=== PATIENT | female | born 1965 | race Caucasian/White ===

== ENCOUNTER → 2017-08-14 | Outpatient (CLI) | payer BC ==
[~2017-08-14] MED LIST: DIATRIZOATE MEGL/DIATRIZOA SOD 30 ML BTL PO ONE; IOPAMIDOL 370 MG/ML 200 ML INFUS..BTL INJ ONE; SODIUM CHLORIDE 0.9% 50ML 50 ML ONE
--- NOTE | 2017-08-14 12:27 | Diagnostic Imaging Report ---
EXAM: CT Abdomen and Pelvis WITH contrast INDICATION: \[id number] \S\1053 \S\ABDOMIONAL PAIN / HIST OF DIVER COMPARISON: CT dated 06/05/2017 TECHNIQUE: Abdomen and pelvis were scanned utilizing a multidetector helical scanner from the lung base to the pubic symphysis after administration of IV contrast. Coronal and sagittal reformations were obtained. Routine protocol was performed. Scan was performed when during portal venous phase. IV CONTRAST: 100 mL of Isovue-370 ORAL CONTRAST: Gastroview COMPLICATIONS: None RADIATION DOSE: Total DLP: 593.22 mGy*cm Estimated effective dose: (DLP x 0.015 x size factor) mSv CTDIvol has been reviewed. It is below the limits set by the Radiation Protocol Committee (RPC). FINDINGS: LINES and TUBES: None. LOWER THORAX: Unremarkable HEPATOBILIARY: Subcentimeter right hepatic lobe hypodensity is too small to characterize (series 2, image 18), however unchanged. Approximately 0.9 cm new ill-defined left hepatic lobe hypodensity (series 2, image11), also too small to characterize. No biliary ductal dilation. GALLBLADDER: No radio-opaque stones or sludge. No wall thickening. SPLEEN: Splenomegaly. PANCREAS: No focal masses or ductal dilatation. ADRENALS: No adrenal nodules KIDNEYS/URETERS: Kidneys enhance symmetrically. Minimal bilateral hydronephrosis. No renal mass. Stable 1.4 cm right upper pole cyst. No stones. GI TRACT: No abnormal distention, wall thickening, or evidence of bowel obstruction. Appendix is normal. Sigmoid diverticulosis without evidence of diverticulitis. PELVIC ORGANS/BLADDER: Yan bladder. LYMPH NODES: No lymphadenopathy. VESSELS: Unremarkable. PERITONEUM / RETROPERITONEUM: No free air or fluid. BONES: Lumbar spine levoscoliosis. No acute osseous abnormality. SOFT TISSUES: Unremarkable. IMPRESSION: 1. No acute inflammatory process in the abdomen/pelvis. 2. Minimal bilateral hydronephrosis, likely due to backflow pressure from distended bladder. 3. Tiny nonspecific hepatic hypodensities which are too small to characterize. If clinically indicated, right upper quadrant ultrasound can be obtained to further evaluate. 4. Sigmoid diverticulosis without evidence of diverticulitis. Signed by: Dr. Celestine Fairbanks MD on 08/14/2017 12:23 PM
== END ==
LOC: CT 09:30
PROVIDERS: ATTEND Internal Medicine Gastroenterology
DX: R10.9 Unspecified abdominal pain (principal); Z87.19 Personal history of other diseases of the digestive system
CPT/HCPCS: 74177; Q9967

== ENCOUNTER → 2018-03-29 | Outpatient (CLI) | payer BC ==
[2018-03-29 13:31] LABS: BLOOD UREA NITROGEN 13 mg/dL (7-26); BUN/CREATININE RATIO 19 (6-25); EST GLOMERULAR FILTRATION RATE > 60 ML/MIN (60-)
--- NOTE | 2018-03-29 16:25 | Diagnostic Imaging Report ---
EXAM: CT Abdomen and Pelvis WITH contrast INDICATION: Abdominal Pain COMPARISON: CT dated 06/05/2017 TECHNIQUE: Abdomen and pelvis were scanned utilizing a multidetector helical scanner from the lung base to the pubic symphysis after administration of IV contrast. Coronal and sagittal reformations were obtained. Routine protocol was performed. Scan was performed when during portal venous phase. IV CONTRAST: 100 mL of Isovue-370 ORAL CONTRAST: Gastroview COMPLICATIONS: None RADIATION DOSE: Total DLP: 281.62 mGy*cm Estimated effective dose: (DLP x 0.015 x size factor) mSv CTDIvol has been reviewed. It is below the limits set by the Radiation Protocol Committee (RPC). FINDINGS: LINES and TUBES: None. LOWER THORAX: Unremarkable HEPATOBILIARY: Subcentimeter right hepatic lobe hypodensity is too small to characterize and unchanged, likely representing a cyst. A previously noted 9 mm left hepatic lobe hypodensity is no longer visualized. No biliary ductal dilation. GALLBLADDER: No radio-opaque stones or sludge. No wall thickening. SPLEEN: Splenomegaly. PANCREAS: No focal masses or ductal dilatation. ADRENALS: No adrenal nodules KIDNEYS/URETERS: Kidneys enhance symmetrically. No evidence of hydronephrosis, solid mass, or stone. Stable 1.4 cm right upper pole cyst. GI TRACT: There is sigmoid diverticulosis with wall thickening and mild pericolonic stranding. No abnormal distention. Appendix is normal. PELVIC ORGANS/BLADDER: Unremarkable. LYMPH NODES: No lymphadenopathy. VESSELS: Unremarkable. PERITONEUM / RETROPERITONEUM: No free air or fluid. BONES AND SOFT TISSUES: Lumbar spine levoscoliosis. No acute osseous abnormality. IMPRESSION: Acute sigmoid diverticulitis without evidence of perforation or drainable fluid collections. Signed by: Dr. Susan Holcomb MD on 03/29/2018 4:22 PM
== END ==
LOC: CT 12:36
PROVIDERS: ATTEND Internal Medicine Gastroenterology
DX: R10.9 Unspecified abdominal pain (principal)
CPT/HCPCS: 36415; 74177; 82565; 84520; Q9967

== ENCOUNTER → 2018-05-21 | Day surgery (SDC) | payer BC ==
[~2018-05-21] MED LIST changes: -DIATRIZOATE MEGL/DIATRIZOA SOD 30 ML BTL PO ONE; +FENTANYL CITRATE/PF 100MCG/2 ML INJ ONE; +HYOSCYAMINE SULFATE 0.5 MG/ML INJ ONE; -IOPAMIDOL 370 MG/ML 200 ML INFUS..BTL INJ ONE; +MIDAZOLAM HCL 2 MG/2 ML VIAL ONE; +PROPOFOL IV EMULSION 10 MG/ML 50 ML VIAL ONE; -SODIUM CHLORIDE 0.9% 50ML 50 ML ONE
--- OUTSIDE RECORDS SUMMARY | 2018-05-21 08:11 | XMS REPORT ---
[facility] Address Unknown Phone Unavailable Care Team Providers Care Provider Enrollment Specialist Name Role Phone DIANE CASTELLANO Unavailable Unavailable Problems This patient has no known problems. Allergies, Adverse Reactions, Alerts This patient has no known allergies or adverse reactions. Medications This patient has no known medications. Results Test Description Test Time Test Comments Text Results Atomic Results Result Comments CT ABDOMEN/PELVIS W 2018-03-29 16:14:00 [place] [address] Patient Name: GRACIELA CALDERON MR #: [id number] : 1965 Age/Sex: 53/F Req #: [id number] Adm Physician: Ordered by: DIANE CASTELLANO MD Report #: [id number] Location: CT Room/Bed: Procedure: [id number] CT/CT ABDOMEN/PELVIS W Exam Date: 03/29/18 Exam Time: 1412 REPORT STATUS: Signed EXAM: CT Abdomen and Pelvis WITH contrast INDICATION: Abdominal Pain COMPARISON: CT dated 06/05/2017 TECHNIQUE: Abdomen and pelvis were scanned utilizing a multidetector helical scanner from the lung base to the pubic symphysis after administration of IV contrast. Coronal and sagittal reformations were obtained. Routine protocol was performed. Scan was performed when during portal venous phase. IV CONTRAST: 100 mL of Isovue-370 ORAL CONTRAST: Gastroview COMPLICATIONS: None RADIATION DOSE: Total DLP: 281.62 mGy*cm Estimated effective dose: (DLP x 0.015 x size factor) mSv CTDIvol has been reviewed. It is below the limits set by the Radiation Protocol Committee (RPC). FINDINGS: LINES and TUBES: None. LOWER THORAX: Unremarkable HEPATOBILIARY: Subcentimeter right hepatic lobe hypodensity is too small to characterize and unchanged, likely representing a cyst. A previously noted 9 mm left hepatic lobe hypodensity is no longer visualized. No biliary ductal dilation. GALLBLADDER: No radio-opaque stones or sludge. No wall thickening. SPLEEN: Splenomegaly. PANCREAS: No focal masses or ductal dilatation. ADRENALS: No adrenal nodules KIDNEYS/URETERS: Kidneys enhance symmetrically. No evidence of hydronephrosis, solid mass, or stone. Stable 1.4 cm right upper pole cyst. GI TRACT: There is sigmoid diverticulosis with wall thickening and mild pericolonic stranding. No abnormal distention. Appendix is normal. PELVIC ORGANS/BLADDER: Unremarkable. LYMPH NODES: No lymphadenopathy. VESSELS: Unremarkable. PERITONEUM / RETROPERITONEUM: No free air or fluid. BONES AND SOFT TISSUES: Lumbar spine levoscoliosis. No acute osseous abnormality. IMPRESSION: Acute sigmoid diverticulitis without evidence of perforation or drainable fluid collections. Signed by: Dr. Den Moe MD on 03/29/2018 4:22 PM Dictated By: DEN MOE MD 1622 Transcribed By: JAELYN on 03/29/18 1622 COPY TO: DIANE CASTELLANO MD CT ABDOMEN/PELVIS [place] [address] Patient Name: GRACIELA CALDERON MR #: [id number] : 1965 Age/Sex: 52/F Req #: [id number] Adm Physician: Ordered by: DIANE CASTELLANO MD Report #: [id number] Location: CT Room/Bed: Procedure: [id number] CT/CT ABDOMEN/PELVIS W Exam Date: 08/14/17 Exam Time: 1053 REPORT STATUS: Signed EXAM: CT Abdomen and Pelvis WITH contrast INDICATION: COMPARISON: CT dated 06/05/2017 TECHNIQUE: Abdomen and pelvis were scanned utilizing a multidetector helical scanner from the lung base to the pubic symphysis after administration of IV contrast. Coronal and sagittal reformations were obtained. Routine protocol was performed. Scan was performed when during portal venous phase. IV CONTRAST: 100 mL of Isovue-370 ORAL CONTRAST: Gastroview COMPLICATIONS: None RADIATION DOSE: Total DLP: 593.22 mGy*cm Estimated effective dose: (DLP x 0.015 x size factor) mSv CTDIvol has been reviewed. It is below the limits set by the Radiation Protocol Committee (RPC). FINDINGS: LINES and TUBES: None. LOWER THORAX: Unremarkable HEPATOBILIARY: S ubcentimeter right hepatic lobe hypodensity is too small to characterize (series 2, image 18), however unchanged. Approximately 0.9 cm new ill-defined left hepatic lobe hypodensity (series 2, image11), also too small to characterize. No biliary ductal dilation. GALLBLADDER: No radio-opaque stones or sludge. No wall thickening. SPLEEN: Splenomegaly. PANCREAS: No focal masses or ductal dilatation. ADRENALS: No adrenal nodules KIDNEYS/URETERS: Kidneys enhance symmetrically. Minimal bilateral hydronephrosis. No renal mass. Stable 1.4 cm right upper pole cyst. No stones. GI TRACT: No abnormal distention, wall thickening, or evidence of bowel obstruction. Appendix is normal. Sigmoid diverticulosis without evidence of diverticulitis. PELVIC ORGANS/BLADDER: Yan bladder. LYMPH NODES: No lymphadenopathy. VESSELS: Unremarkable. PERITONEUM / RETROPERITONEUM: No free air or fluid. BONES: Lumbar spine levoscoliosis. No acute osseous abnormality. SOFT TISSUES: Unremarkable. IMPRESSION: 1. No acute inflammatory process in the abdomen/pelvis. 2. Minimal bilateral hydronephrosis, likely due to backflow pressure from distended bladder. 3. Tiny nonspecific hepatic hypodensities which are too small to characterize. If clinically indicated, right upper quadrant ultrasound can be obtained to further evaluate. 4. Sigmoid diverticulosis without evidence of diverticulitis. Signed by: Dr. Celestine Khan MD on 08/14/2017 12:23 PM Dictated By: CELESTINE KHAN MD 1223 Transcribed By: JAELYN on 08/14/17 1223 COPY TO: DIANE CASTELLANO MD CT ABDOMEN/PELVIS W [place] [address] Patient Name: GRACIELA CALDERON MR #: [id number] : 1965 Age/Sex: 52/F Req #: [id number] Adm Physician: Ordered by: DIANE CASTELLANO MD Report #: [id number] Location: CT Room/Bed: Procedure: [id number] CT/CT ABDOMEN/PELVIS W Exam Date: 06/05/17 Exam Time: 1850 REPORT STATUS: Signed PROCEDURE: CT ABDOMEN AND PELVIS WITH CONTRAST TECHNIQUE: The abdomen and pelvis were scanned utilizing a multidetector helical scanner from the diaphragm to the lesser trochanter after the IV administration of 100 cc of Isovue 370 and the oral administration of Gastroview 30 cc. Coronal and sagittal multiplanar reformations were obtained. COMPARISON: None. INDICATIONS: LOWER ABDOMINAL PAIN, HX OF DIVERTICULITIS FINDINGS: LOWER THORAX: Normal. HEPATOBILIARY: No focal hepatic lesions. No biliary ductal dilatation. SPLEEN: No splenomegaly. PANCREAS: No focal masses or ductal dilatation. ADRENALS: No adrenal nodules. KIDNEYS/URETERS: No hydronephrosis, stones, or solid mass lesions. Simple cyst is present in the superior pole the right kidney. PELVIC ORGANS/BLADDER: Unremarkable. PERITONEUM / RETROPERITONEUM: No free air or fluid. LYMPH NODES: No lymphadenopathy. VESSELS: Unremarkable. GI TRACT: Multiple diverticuli are present in the descending and sigmoid colon. Long segment of bowel wall thickening with adjacent soft tissue inflammatory changes are present, series 2 image 64. 1.1 cm contained perforation is present, series 2 image 62. No drainable fluid collection. Normal appendix. BONES AND SOFT TISSUES: Minimal degenerative changes of the lumbar spine. IMPRESSION: Acute diverticulitis with small contained perforation. Dictated by: Campbell Cruz M.D. on 06/06/2017 at 12:51 Electronically approved by: Campbell Cruz M.D. on 06/06/2017 at 12:51 Dictated By: CAMPBELL CRUZ MD 1251 Transcribed By: ANDREY on 06/06/17 1251 COPY TO: DIANE CASTELLANO MD
--- OUTSIDE RECORDS SUMMARY | 2018-05-21 08:11 | XMS REPORT | Clinical Summary ---
Author Author [facility] Address Unknown Phone Unavailable Care Team Providers Care Flat Screen Worker Name Role Phone Asked, No Pcp PCP Unavailable Allergies Not on File Current Medications Not on file Active Problems Not on file Encounters Date Type Specialty Care Team Description 05/01/2018 Clinical Corporate Wellness Support after 05/20/2017 Immunizations Name Dates Previously Given Next Due FLUCELVAX QUAD PF (0.5mL 05/01/2018 syringe) Social History Tobacco Use Types Packs/Day Years Used Date Never Assessed Sex Assigned at Date Recorded Not on file Last Filed Vital Signs Not on file Plan of Treatment Health Maintenance Due Date Last Done Comments CERVICAL CANCER SCREENING 01/31/1984 BREAST CANCER SCREENING 2013 COLON CANCER SCREENING 2013 SHINGRIX VACCINE (#1) 2013 INFLUENZA VACCINE Completed 05/01/2018 Results Not on fileafter 05/20/2017 Insurance Payer Benefit Subscriber ID Type Phone Address Plan / Group BCBS BCBS xxxxxxxxxxxx PPO CHOICE PPO/DANIEL ALEX PPO Work: [id number] [place] [id number] Home:
[2018-05-21 12:25] VITALS: BP 114/76
--- NOTE | 2018-05-21 12:52 | Operative Report ---
DATE OF PROCEDURE: May 21, 2018 REFERRING PHYSICIAN: Dr. Mahesh Elder. PROCEDURE PERFORMED: Colonoscopy and polypectomy with biopsies. INDICATIONS FOR COLONOSCOPY: Colorectal cancer screening. Sister with colon cancer. MEDICATION: Patient was done under MAC. Please see anesthesiologist's note. PROCEDURE: With the patient in the left lateral decubitus position, the flexible fiberoptic Olympus colonoscope was inserted into the rectum with ease and advanced all the way to the cecum. Mucosa overlying the cecum appeared to be within normal limits. The ileocecal valve was intubated, and the scope was advanced into the terminal ileum. There were some patchy mild inflammatory changes noted in the terminal ileum, and biopsies were obtained. The scope was then withdrawn back into the colon. It was then withdrawn slowly. Mucosa overlying the ascending and the transverse appeared to be within normal limits. There was some diverticular disease noted in the distal descending and the sigmoid colon. Some patchy mild inflammatory areas were noted in the sigmoid and the rectum, and random biopsies were obtained. One polyp was hot biopsied from the rectum. The scope was then retroflexed into the distal rectum and small internal hemorrhoids were noted, none of which was actively bleeding. Also, there were some hypertrophic anal papillae. The scope was then straightened out. It was subsequently withdrawn. Patient tolerated the procedure well. IMPRESSION: 1. Ileitis, mild, biopsied. 2. Diverticulosis. 3. Proctosigmoiditis, mild. Biopsies obtained. 4. Rectal polyp hot biopsied. 5. Internal hemorrhoids, none actively bleeding. 6. Hypertrophic anal papillae. PLAN: Follow up histology. Initiate VSL#3 one p.o. daily. Patient might benefit from a followup colonoscopy in 3 years. Job#: [id number] EV cc:MAHESH ELDER DO
== END | disposition home or self-care (01) ==
LOC: OR 08:09
PROVIDERS: ATTEND Internal Medicine Gastroenterology
DX: Z12.11 Encounter for screening for malignant neoplasm of colon (principal); Z80.0 Family history of malignant neoplasm of digestive organs; K52.9 Noninfective gastroenteritis and colitis, unspecified; D12.8 Benign neoplasm of rectum; K63.89 Other specified diseases of intestine; K62.89 Other specified diseases of anus and rectum; K64.8 Other hemorrhoids; K57.30 Diverticulosis of large intestine without perforation or abscess without bleeding
CPT/HCPCS: 45384; 93005; J1980; J2250

== ENCOUNTER → 2018-07-09 | Outpatient (CLI) | payer BC ==
--- NOTE | 2018-07-09 11:17 | Diagnostic Imaging Report ---
This report includes an Addendum and supersedes previous reports for this exam. PROCEDURE:X-RAY BARIUM ENEMA WITH AIR CONTRAST COMPARISON:None. INDICATIONS:DIVERTICULOSIS TECHNIQUE:An air contrast barium enema examination was performed in the usual manner. Loss Claim Clerk abdominal radiograph moderate-severe thoracolumbar scoliosis. FINDINGS: COLON:There are moderate amount of diverticula present in the distal descending colon and proximal sigmoid colon. Narrowing in this region is present. There are several isolated diverticula present in the mid descending colon. There are no signs of diverticulitis. No polyps are seen. No obstructing or constricting lesions. The appendix is visualized. Fluoroscopy time: 1.9 minutes Total dose: 74.59 mGy CONCLUSION: Colonic diverticulosis. Phil Nolen D.O. Dictated by: Phil Nolen D.O. on 07/09/2018 at 11:27 Electronically approved by: Phil Nolen D.O. on 07/09/2018 at 11:27 ADDENDUM: A total of 15 fluoro spot images were obtained and saved to the medical record. Air Kerma not specified by the technologist. Phil Nolen D.O. Dictated by: Phil Nolen D.O. on 07/18/2018 at 8:16 Electronically approved by: Phil Nolen D.O. on 07/18/2018 at 8:16
== END ==
LOC: DX 07:37
PROVIDERS: ATTEND Surgery
DX: K57.92 Diverticulitis of intestine, part unspecified, without perforation or abscess without bleeding (principal)
CPT/HCPCS: 74280

== ENCOUNTER 2018-08-15 05:31 | Inpatient (IN) | payer BC ==
[2018-08-10 10:50] LABS: BASOPHILS % 0.7 % (0.0-1.0); EOSINOPHILS # (AUTO) 0.1 (0.0-0.4); EOSINOPHILS % 2.9 % (0.0-6.0); HEMATOCRIT 40.9 % (34.2-44.1); HEMOGLOBIN 13.3 g/dL (12.0-16.0); LYMPHOCYTES # (AUTO) 1.8 (1.0-3.2); LYMPHOCYTES % 39.4 % (18.0-39.1); MEAN CORPUSCULAR HEMOGLOBIN 28.7 pg (28-32); MEAN CORPUSCULAR HGB CONC 32.5 g/dL (31-35); MEAN CORPUSCULAR VOLUME 88.3 fL (81-99); MONOCYTES # (AUTO) 0.3 (0.2-0.8); MONOCYTES % 7.6 % (4.4-11.3); NEUTROPHILS # (AUTO) 2.2 (2.1-6.9); NEUTROPHILS % 49.2 % (38.7-80.0); PLATELET COUNT 186 x10e3/uL (140-360); RED BLOOD COUNT 4.63 x10e6/uL (3.6-5.1); RED CELL DISTRIBUTION WIDTH 13.1 % (11.7-14.4)
--- NOTE | 2018-08-10 10:59 | Diagnostic Imaging Report ---
EXAMINATION: PA and lateral views of the chest. COMPARISON: None CLINICAL HISTORY: Preoperative study diverticulitis DISCUSSION: Lungs are well-inflated. No focal airspace consolidation, pleural effusion, or pneumothorax. Cardiomediastinal contour and pulmonary vasculature are within normal limits when accounting for the dextroscoliotic curvature of the thoracic spine. No acute osseous abnormality. IMPRESSION: No acute cardiopulmonary abnormalities. Signed by: Dr. Sebastian Chapa M.D. on 08/10/2018 10:55 AM
[2018-08-10 11:27] LABS: ALANINE AMINOTRANSFERASE 17 IU/L (0-55); ALBUMIN/GLOBULIN RATIO 1.4 (0.8-2.0); ALKALINE PHOSPHATASE 81 IU/L (40-150); ANION GAP 11.5 mmol/L (8-16); BLOOD UREA NITROGEN 16 mg/dL (7-26); BUN/CREATININE RATIO 21 (6-25); CALCIUM 9.3 mg/dL (8.4-10.2); CARBON DIOXIDE 28 mmol/L (22-29); CHLORIDE 106 mmol/L (98-107); CREATININE, SERUM 0.76 mg/dL (0.57-1.11); EST GLOMERULAR FILTRATION RATE > 60 ML/MIN (60-); GLUCOSE 84 mg/dL (74-118); POTASSIUM 3.5 mmol/L (3.5-5.1); SODIUM 142 mmol/L (136-145)
[~2018-08-15] VITALS: Ht 165.1 cm; Wt 61.7 kg
[~2018-08-15 05:31] MED LIST changes: -FENTANYL CITRATE/PF 100MCG/2 ML INJ ONE; -HYOSCYAMINE SULFATE 0.5 MG/ML INJ ONE; -MIDAZOLAM HCL 2 MG/2 ML VIAL ONE; +MULTI-VITAMIN1 EACH PO; +PROBIOTIC & AC1 EACH PO; -PROPOFOL IV EMULSION 10 MG/ML 50 ML VIAL ONE
--- OUTSIDE RECORDS SUMMARY | 2018-08-15 05:34 | XMS REPORT | Clinical Summary ---
Author Author [facility] Organization [facility] Address Unknown Phone Unavailable Care Team Providers Care Low Pressure Boiler Tender Name Role Phone Asked, No Pcp PCP Unavailable Allergies Not on File Medications Not on file Active Problems Not on file Encounters Care Team Description Date Type Specialty 05/01/2018 Clinical Corporate Wellness Support after 08/14/2017 Immunizations Name Dates Previously Given Next Due FLUCELVAX QUAD PF (0.5mL 05/01/2018 syringe) Social History Date Tobacco Use Types Packs/Day Years Used Never Assessed Sex Assigned at Date Recorded Not on file Industry Job Start Date Occupation Not on file Not on file Not on file Travel End Travel History Travel Start No recent travel history available. Last Filed Vital Signs Not on file Plan of Treatment Health Maintenance Due Date Last Done Comments CERVICAL CANCER SCREENING 01/31/1984 BREAST CANCER SCREENING 2013 COLON CANCER SCREENING 2013 SHINGLES VACCINES (1 of 2013 2) INFLUENZA VACCINE Completed 05/01/2018 Results Not on fileafter 08/14/2017 Insurance Payer Benefit Subscriber ID Type Phone Address Plan / Group BCBS BCBS xxxxxxxxxxxx PPO CHOICE PPO/DANIEL Alejandro EMPL PPO Advance Directives Patient has advance care planning documents on file. For more information, pleboone e contact: Yanick Hardwick [address] [place] [address]
--- NOTE | 2018-08-15 07:10 | NUR ---
SPIRITUAL CARE - Pre-Surgery Assessment: Pt in bed. Pt's at bedside. Pt reported supportive attention from family and friends. Intervention: I provided pastoral presence, hospitality, and sympathetic listening. I acquainted pt with availability of steam pipe fitter while hospitalized. Outcome: Pt expressed appreciation for visit. No need for follow up indicated at this time. VANCE Hortalain Spiritual Care Department O: [phone] Pager: [phone] ([phone] number calling from)
[2018-08-15] MEDS ORDERED: MINERAL OIL STERILE 10ML VIAL ONE (07:34)
[2018-08-15] MEDS ORDERED: BUPIVACAINE 0.25% 30ML SDV INJ ONE (07:34)
[2018-08-15] MEDS ORDERED: HYDROMORPHONE 0.2MG/ML-SOD CHL 30ML PCA SYRINGE IV PRN (12:15)
[2018-08-15] MEDS ORDERED: ACETAMINOPHEN 1000 MG/100 ML IV PRN (12:15)
[2018-08-15] MEDS ORDERED: NALOXONE HCL INJ 0.4 MG/ML AMP IV PRN (12:15)
[2018-08-15] MEDS ORDERED: PROMETHAZINE HCL (IM) 25 MG/ML VIAL IV PRN (12:15)
[2018-08-15] MEDS ORDERED: PROMETHAZINE 12.5MG/ NACL 0.9% 50 ML IV PRN (12:30)
[2018-08-15] MEDS ORDERED: HYDROMORPHONE 2MG/ML 2 MG/ML ML ONE (13:03)
[2018-08-15] MEDS ORDERED: HYDROMORPHONE 0.2MG/ML-SOD CHL 30ML PCA SYRINGE IV ONE (13:43)
--- NOTE | 2018-08-15 13:51 | Operative Report ---
DATE OF PROCEDURE: August 15, 2018 PREOPERATIVE DIAGNOSIS: Recurrent diverticulitis. POSTOPERATIVE DIAGNOSIS: Recurrent diverticulitis. OPERATION PERFORMED: Laparoscopic-assisted low anterior resection with mobilization of the splenic flexure and transanal staple anastomosis. HOSPITAL MANAGER: Dr. Maximino Duenas. ANESTHESIA: General endotracheal. COMPLICATIONS: None. ESTIMATED BLOOD LOSS: 50 mL. DESCRIPTION OF PROCEDURE: With the patient lying in bed in the supine position with the leg in stirrups, the abdomen and perineum were prepped with Betadine solution and draped in the usual manner. A Veress needle was introduced into the umbilicus, and pneumoperitoneum was established without any difficulty. A 5 mm trocar was placed in the umbilicus, and a 5 mm video laparoscope was placed into the intra-abdominal cavity. Another 5 mm trocar was placed into the right upper quadrant, and another one was placed in the right lower quadrant. Another 5 mm trocar was placed in the left lower quadrant. Video laparoscopy at this point revealed the sigmoid colon to be stuck to the lateral gutter as expected from the patient's multiple bouts of previous diverticulitis. The rest of the abdominal exploration was otherwise within normal limits. Using the Harmonic scalpel, the left colon was then from the lateral gutter and from the left adnexa. After this was done, the colon was mobilized medially all the way up to the splenic flexure. The splenic flexure was from the spleen, and the splenic flexure was brought down so that it would reach down into the pelvis without any difficulty. The colon was then mobilized all the way down to the upper rectum similarly, bringing it off of the left lateral gutter. At this point, a small incision was made in the left lower quadrant and a muscle-splitting incision was carried down into the peritoneum. The sigmoid colon was then brought down and above where all of the diverticula were done at the level of the descending colon. The colon was then divided with an application of the TAL 75 stapler. The mesentery of the colon was then slowly and carefully taken down using the Harmonic scalpel all the way down to the rectosigmoid junction, at which point the rectosigmoid junction was divided with an application of the contour stapler. At this point, the proximal colon was then prepared for anastomosis. The staple line was removed, and a 29 EEA head was placed into the proximal colon and fixed in place with a purse-string suture of 2-0 Prolene. At this point, we went from below. The anus and rectum were dilated with the dilators, and the 29 EEA stapler was then placed transanally and brought out through the anterior aspect of the rectosigmoid junction just above the staple line. The proximal colon with the anvil and the stapler were then joined, and the stapler was closed and fired. Two perfect doughnuts were obtained. Gloves and instruments were then changed. Hemostasis was ascertained. The anastomosis was then reinforced with interrupted sutures of 3-0 Vicryl. The whole area was thoroughly irrigated. Hemostasis was ascertained, and the abdomen was then closed in layers. The peritoneum was closed with a running suture of number 1 Vicryl. The muscle was approximated with number 1 Vicryl, and the external oblique aponeurosis was closed with a running suture of 0 Vicryl. The subcutaneous tissue was approximated with 3-0 plain, and the skin was closed with clips. All layers were infiltrated on the way out with solution of 1/4 percent Marcaine. All the 5 mm trocar sites were closed with subcuticular 5-0 Vicryl. Dressings were applied. The sponge, lap and needle count was correct. The patient tolerated the procedure well and returned to the recovery room in stable condition. Job#: [id number] EV
--- OUTSIDE RECORDS SUMMARY | 2018-08-15 14:10 | XMS REPORT | Clinical Summary ---
Author Author [facility]ian[facility] Organization [facility] Address Unknown Phone Unavailable Care Team Providers Care Architectural Technologist Name Role Phone Asked, No Pcp PCP [...] more information, pleboone e contact: Yanick Hardwick [address] [place] [address]
--- NOTE | 2018-08-15 14:20 | NUR ---
RECEIVED PT FROM PACU, PT WITH FASHION MARKETER PUMP IN PLACE 2 RN CHECK AT BEDSIDE. PT WITH 3 PUNCTURE SITES AND ONE INCISION SITE DRESSING DRY AND INTACT. Addendum: 08/15/18 at 1540 by Rosy Pena RN PT ORIENTED TO ROOM AND HOSPITAL POLICY CALL LIGHT WITHIN REACH SIDE RAILS UP X2 WILL CONTINUE TO MONITOR
[2018-08-15 15:08] VITALS: BP 93/66
[2018-08-15 16:00] VITALS: BP 102/66
[2018-08-15] MEDS: DEXTROSE 5%/LACTATED RINGERS 1,000 ML IV SCH (17:16)
[2018-08-15] MEDS: PANTOPRAZOLE 40 MG 10ML VIAL IV SCH (17:16)
[2018-08-15] MEDS: CEFOXITIN 1GM/ NS 50ML 50 ML IV SCH (17:54)
[2018-08-15] MEDS ORDERED: MIDAZOLAM HCL 2 MG/2 ML VIAL ONE (18:22)
[2018-08-15] MEDS ORDERED: FENTANYL CITRATE/PF 100MCG/2 ML INJ ONE (18:22)
[2018-08-15 20:00] VITALS: BP 95/63
--- NOTE | 2018-08-15 23:01 | NUR ---
patient is awake, STORYBOARD ARTIST pump is intact and running, stated pain level at this time is 1. vitals signs checked. will continue to monitor.
[2018-08-16] VITALS (10 sets, daily range): BP systolic 85–103; BP diastolic 53–69
[2018-08-16] MEDS: CEFOXITIN 1GM/ NS 50ML 50 ML IV SCH (00:25)
[2018-08-16] MEDS: DEXTROSE 5%/LACTATED RINGERS 1,000 ML IV SCH ×3 (03:47→18:22)
[2018-08-16 04:56] LABS: BASOPHILS % 0.1 % (0.0-1.0); EOSINOPHILS % 0.1 % (0.0-6.0); HEMOGLOBIN 11.3 g/dL (12.0-16.0); LYMPHOCYTES % 12.2 % (18.0-39.1); MEAN CORPUSCULAR HEMOGLOBIN 28.8 pg (28-32); MEAN CORPUSCULAR HGB CONC 32.3 g/dL (31-35); MEAN CORPUSCULAR VOLUME 89.3 fL (81-99); MONOCYTES # (AUTO) 0.7 (0.2-0.8); MONOCYTES % 8.3 % (4.4-11.3); NEUTROPHILS # (AUTO) 6.5 (2.1-6.9); NEUTROPHILS % 78.8 % (38.7-80.0); PLATELET COUNT 174 x10e3/uL (140-360); RED BLOOD COUNT 3.92 x10e6/uL (3.6-5.1); RED CELL DISTRIBUTION WIDTH 13.1 % (11.7-14.4)
[2018-08-16 05:21] LABS: BLOOD UREA NITROGEN 6 mg/dL (7-26); BUN/CREATININE RATIO 9 (6-25); CALCIUM 8.5 mg/dL (8.4-10.2); CARBON DIOXIDE 28 mmol/L (22-29); CHLORIDE 106 mmol/L (98-107); CREATININE, SERUM 0.68 mg/dL (0.57-1.11); EST GLOMERULAR FILTRATION RATE > 60 ML/MIN (60-); GLUCOSE 135 mg/dL (74-118); SODIUM 141 mmol/L (136-145)
--- NOTE | 2018-08-16 07:27 | NUR ---
Called Dr. Corinna Duenas made him aware patient's blood pressure 88/56 HR66 received orders to discontinue basal rate in Dilaudid GRAVITY PROSPECTING OBSERVER.
[2018-08-16] MEDS: PANTOPRAZOLE 40 MG 10ML VIAL IV SCH ×2 (08:40→08:55)
[2018-08-16] MEDS ORDERED: LACTATED RINGER'S 1,000 ML IV STA (11:12)
[2018-08-16] MEDS ORDERED: ACETAMINOPHEN 1000 MG/100 ML IV PRN (13:00)
--- NOTE | 2018-08-16 13:30 | NUR ---
Handoff report to nurse Lety LVN made aware patient has had poor appetite.
[2018-08-16] MEDS: KETOROLAC TROMETHAMINE 30 MG/ML VIAL IM PRN ×2 (13:41→21:58)
[2018-08-16] MEDS ORDERED: ONDANSETRON HCL INJ 2MG/ML 2ML 2 MG/ML VIAL IV PRN (13:45)
[2018-08-16] MEDS ORDERED: CEFOXITIN SOD 1 GM VIAL ONE (20:02)
[2018-08-16] MEDS ORDERED: SEVOFLURANE INHAL SOLN 250 ML PEN BTL ONE (20:02)
[2018-08-16] MEDS ORDERED: ACETAMINOPHEN 1000 MG/100 ML IV ONE (20:02)
[2018-08-16] MEDS ORDERED: ONDANSETRON HCL INJ 2MG/ML 2ML 2 MG/ML VIAL ONE (20:02)
[2018-08-16] MEDS ORDERED: PROPOFOL IV EMULSION 10 MG/ML 20 ML VIAL ONE (20:02)
[2018-08-16] MEDS ORDERED: LIDOCAINE HCL 2% LOCAL INJ 5 ML SDV VIAL INJ ONE (20:02)
[2018-08-16] MEDS ORDERED: ROCURONIUM BROMIDE 10 MG/ML 5ML VIAL ONE (20:02)
[2018-08-16] MEDS ORDERED: EPHEDRINE SULFATE INJ 50 MG/10 ML SYR ONE (20:02)
[2018-08-16] MEDS ORDERED: DEXAMETHASONE SOD PHOS INJ 4 MG/ML VIAL ONE (20:02)
[2018-08-17] VITALS (8 sets, daily range): BP systolic 101–162; BP diastolic 65–86
[2018-08-17] MEDS: DEXTROSE 5%/LACTATED RINGERS 1,000 ML IV SCH ×2 (04:01→13:39)
[2018-08-17 05:05] LABS: BASOPHILS % 0.4 % (0.0-1.0); EOSINOPHILS # (AUTO) 0.1 (0.0-0.4); EOSINOPHILS % 2.1 % (0.0-6.0); HEMATOCRIT 29.5 % (34.2-44.1); HEMOGLOBIN 9.8 g/dL (12.0-16.0); LYMPHOCYTES # (AUTO) 1.6 (1.0-3.2); LYMPHOCYTES % 30.7 % (18.0-39.1); MEAN CORPUSCULAR HEMOGLOBIN 29.7 pg (28-32); MEAN CORPUSCULAR HGB CONC 33.2 g/dL (31-35); MEAN CORPUSCULAR VOLUME 89.4 fL (81-99); MONOCYTES # (AUTO) 0.4 (0.2-0.8); MONOCYTES % 7.4 % (4.4-11.3); NEUTROPHILS # (AUTO) 3.1 (2.1-6.9); NEUTROPHILS % 59.2 % (38.7-80.0); PLATELET COUNT 129 x10e3/uL (140-360)
[2018-08-17 05:23] LABS: ANION GAP 7.6 mmol/L (8-16); BLOOD UREA NITROGEN 6 mg/dL (7-26); BUN/CREATININE RATIO 9 (6-25); CALCIUM 8.2 mg/dL (8.4-10.2); CARBON DIOXIDE 32 mmol/L (22-29); CHLORIDE 106 mmol/L (98-107); CREATININE, SERUM 0.66 mg/dL (0.57-1.11); EST GLOMERULAR FILTRATION RATE > 60 ML/MIN (60-); GLUCOSE 100 mg/dL (74-118); POTASSIUM 3.6 mmol/L (3.5-5.1); SODIUM 142 mmol/L (136-145)
[2018-08-17] MEDS: PANTOPRAZOLE 40 MG 10ML VIAL IV SCH (09:32)
--- NOTE | 2018-08-17 09:53 | NUR ---
PT AMBULATED TO RECLINER WITH STANDBY ASSIST, DID WELL. NO COMPLAINS OF INCREASED PAIN
[2018-08-17] MEDS ORDERED: ACETAMINOPHEN 325 MG TAB PO PRN (15:00)
[2018-08-17] MEDS: HYDROCODONE/APAP 5MG-325MG TAB PO PRN (19:36)
[2018-08-18] VITALS (7 sets, daily range): BP systolic 109–121; BP diastolic 68–76
[2018-08-18] MEDS: DEXTROSE 5%/LACTATED RINGERS 1,000 ML IV SCH ×2 (02:00→16:08)
[2018-08-18 04:50] LABS: BASOPHILS % 0.4 % (0.0-1.0); EOSINOPHILS # (AUTO) 0.2 (0.0-0.4); EOSINOPHILS % 3.8 % (0.0-6.0); HEMOGLOBIN 10.4 g/dL (12.0-16.0); LYMPHOCYTES # (AUTO) 1.5 (1.0-3.2); MEAN CORPUSCULAR HEMOGLOBIN 28.6 pg (28-32); MEAN CORPUSCULAR HGB CONC 32.5 g/dL (31-35); MEAN CORPUSCULAR VOLUME 87.9 fL (81-99); MONOCYTES # (AUTO) 0.3 (0.2-0.8); MONOCYTES % 6.7 % (4.4-11.3); NEUTROPHILS # (AUTO) 2.5 (2.1-6.9); NEUTROPHILS % 55.9 % (38.7-80.0); PLATELET COUNT 157 x10e3/uL (140-360); RED BLOOD COUNT 3.64 x10e6/uL (3.6-5.1); RED CELL DISTRIBUTION WIDTH 12.7 % (11.7-14.4)
[2018-08-18 05:08] LABS: ANION GAP 12.3 mmol/L (8-16); BLOOD UREA NITROGEN 5 mg/dL (7-26); BUN/CREATININE RATIO 8 (6-25); CALCIUM 8.6 mg/dL (8.4-10.2); CARBON DIOXIDE 28 mmol/L (22-29); CHLORIDE 105 mmol/L (98-107); CREATININE, SERUM 0.65 mg/dL (0.57-1.11); EST GLOMERULAR FILTRATION RATE > 60 ML/MIN (60-); GLUCOSE 96 mg/dL (74-118); POTASSIUM 3.3 mmol/L (3.5-5.1); SODIUM 142 mmol/L (136-145)
--- NOTE | 2018-08-18 07:15 | NUR ---
Handoff report rec'd during walking rounds with outgoing shift leader nurse.
--- NOTE | 2018-08-18 08:40 | NUR ---
Patient ambulating. No s/s distress noted.
[2018-08-18] MEDS: PANTOPRAZOLE 40 MG 10ML VIAL IV SCH (09:11)
[2018-08-18] MEDS: HYDROCODONE/APAP 5MG-325MG TAB PO PRN (11:06)
--- NOTE | 2018-08-18 11:07 | NUR ---
Report called to Lydia for transfer to room 100.
--- NOTE | 2018-08-18 11:26 | NUR ---
Received patient from [facility]. Patient A/O X3, even respirations unlabored on room air. Bowel sounds active and patient is having bowel movements. Patient is able to ambulate independently but has been using IV pole to keep stable. Left AC 20 gauge with D5 LR @ 75mls/hr. 3 trocar sites on abdomen dry/intact. Abdominal incision dressing is clean dry and intact. Patient states pain is 4/10 and was given [employer] before sent to unit.
--- NOTE | 2018-08-18 11:33 | NUR ---
Pt transferred to room 100 with all belongings via wheelchair and in stable condition.
--- NOTE | 2018-08-18 19:10 | NUR ---
RECEIVED PATIENT IN ROOM WITH FAMILY MEMBER TO SIDE. AAOX3, STABLE CONDITION. NO NEEDS VOICED AT THIS TIME. WILL CONTINUE TO MONITOR THE PATIENT CLOSELY.
--- NOTE | 2018-08-18 19:19 | NUR ---
PATIENT IS AMBULATING HALLWAY. GAIT IS STEADY.
[2018-08-19 00:41] VITALS: BP 135/81
[2018-08-19 05:07] VITALS: BP 120/71
[2018-08-19] MEDS: DEXTROSE 5%/LACTATED RINGERS 1,000 ML IV SCH (06:55)
--- NOTE | 2018-08-19 07:12 | NUR ---
Received patient and walking rounds complete. Patient asleep in bed at this time. No signs of distress. Bed in lowest position, wheels locked, side rails up x2, call light in reach. Will continue to monitor.
[2018-08-19 07:56] VITALS: BP 139/59
[2018-08-19] MEDS: PANTOPRAZOLE 40 MG 10ML VIAL IV SCH (09:04)
[2018-08-19 09:08] VITALS: BP 139/59
--- NOTE | 2018-08-19 09:36 | NUR ---
Patient A/O X3, even respirations on RA unlabored. Bowel sounds active and having BM'S. Abdominal incision open to air, trocar sites intact. Patient ambulates in barlow frequently, steady gait. Pain 2/10 in abdomen, not requesting pain medication at this time. Left FA 20 gauge IV with D5 LR @ 75 mls/hr. Will continue to monitor.
[2018-08-19 11:46] VITALS: BP 112/70
[2018-08-19] MEDS ORDERED: NORCO 7.5-3251 EACH PO (12:23)
--- NOTE | 2018-08-19 12:30 | NUR ---
Removed patients IV. Catheter tip intact and pressure dressing applied.
--- NOTE | 2018-08-19 13:13 | NUR ---
Patient discharged from facility. Patient gathered all personal belongings, discharge instructions, follow up information, and home care instructions. Left unit in wheelchair and went home via private auto. No signs of distress during discharge.
== END 2018-08-19 13:13 | disposition home or self-care (01) | DRG 331 ==
LOC: OR 05:31 → PACU V 12:02 → IMCU 14:12 → MED/SURG 08-18 11:16
PROVIDERS: ADMIT Surgery; ATTEND Surgery
PROC: 0DTN0ZZ Resection of Sigmoid Colon, Open Approach (ICD-10-PCS; principal; 2018-08-15 08:47)
DX: K57.32 Diverticulitis of large intestine without perforation or abscess without bleeding (principal); Z01.810 Encounter for preprocedural cardiovascular examination; Z01.812 Encounter for preprocedural laboratory examination; Z01.811 Encounter for preprocedural respiratory examination
CPT/HCPCS: 36415; 71046; 80048; 80053; 85025; 86850; 86900; 88307; 93005; C1766; J0694; J1100; J1885; J2001; J2250; J2405; J7121

== ENCOUNTER → 2020-02-28 | Outpatient (CLI) | payer BC ==
[~2020-02-28] MED LIST changes: +NORCO 7.5-3251 EACH PO
--- NOTE | 2020-02-28 08:57 | Diagnostic Imaging Report ---
EXAMINATION: CHEST 2 VIEWS INDICATION: Pneumonia, chest pain COMPARISON: Chest radiograph 08/10/2018 FINDINGS: LINES/TUBES:None LUNGS:The lungs are well-inflated. No focal consolidation or pulmonary edema. PLEURA:No pleural effusion or pneumothorax. MEDIASTINUM:The cardiomediastinal silhouette appears normal in size and shape. BONES/SOFT TISSUES:No acute osseous injury. Dextroconvex curvature of the thoracic spine. ABDOMEN:No free air under the diaphragm. IMPRESSION: No focal pneumonia or pulmonary edema. Signed by: Tayo Hodge MD on 02/28/2020 8:53 AM
== END ==
LOC: RAD 07:25
PROVIDERS: ATTEND Family Medicine
DX: J98.8 Other specified respiratory disorders (principal)
CPT/HCPCS: 71046

== ENCOUNTER 2021-01-07 07:10 | Emergency (ER) | payer BC ==
[~2021-01-07] VITALS: Ht 160 cm; Wt 65.8 kg
[2021-01-07] MEDS ORDERED: TETANUS/DIPHTHERIA TOX ADULT 0.5 ML SYR IM ONE (07:30)
[2021-01-07] MEDS ORDERED: LIDOCAINE HCL 1% LOCAL INJ 20 ML VIAL INJ ONE (07:30)
== END 2021-01-07 08:27 | disposition home or self-care (01) ==
LOC: ER 07:27
DX: S61.211A Laceration without foreign body of left index finger without damage to nail, initial encounter (principal); W26.8XXA Contact with other sharp object(s), not elsewhere classified, initial encounter; Y92.000 Kitchen of unspecified non-institutional (private) residence as the place of occurrence of the external cause; J45.909 Unspecified asthma, uncomplicated; Z87.19 Personal history of other diseases of the digestive system
CPT/HCPCS: 12001; 90471; 90714; 99283; J2001

== ENCOUNTER → 2022-04-06 | Outpatient (CLI) | payer BC | LOC: DX 16:09 | PROVIDERS: ATTEND Family Medicine | DX: M81.0 Age-related osteoporosis without current pathological fracture (principal); M47.816 Spondylosis without myelopathy or radiculopathy, lumbar region | CPT/HCPCS: 77080 ==